=== PATIENT | female | born 1975 | race Caucasian/White ===

== ENCOUNTER 2018-06-28 20:35 | Emergency (ER) | payer OTHER ==
[~2018-06-28] VITALS: Ht 162.6 cm; Wt 63.5 kg
[~2018-06-28 20:35] MED LIST: ORTHO TRI-7 DAYSX1 PO
== END 2018-06-28 22:23 | disposition home or self-care (01) ==
LOC: ER 20:35
DX: B34.9 Viral infection, unspecified (principal)

== ENCOUNTER 2018-08-23 09:57 | Emergency (ER) | payer OTHER ==
[~2018-08-23] VITALS: Ht 162.6 cm; Wt 64.4 kg
[2018-08-23] MEDS ORDERED: BACTRIM DS TAB1 EACH PO (12:26)
== END 2018-08-23 12:36 | disposition home or self-care (01) ==
LOC: ER 09:57
DX: N39.0 Urinary tract infection, site not specified (principal)